=== PATIENT | female | born 1950 | race Caucasian/White ===

== ENCOUNTER 2018-03-15 20:46 | Inpatient (IN) | payer BC, OTHER ==
[~2018-03-15] VITALS: Ht 172.7 cm; Wt 77.9 kg
[2018-03-15 21:01] VITALS: Ht 172.7 cm; Wt 77.9 kg
[2018-03-15 23:29] LABS: BASOPHIL % 0.5 % (0-2); PLATELET COUNT 267 x10^3mcL (130-400); RED CELL DISTRIBUTION WIDTH 13.3 % (11.5-14.5)
[2018-03-15] MEDS ORDERED: METFORMIN HYDR500 M1 PO (23:55)
[2018-03-16 00:08] LABS: CALCIUM 9.8 mg/dL (8.5-10.1); CARBON DIOXIDE 26.4 mmol/L (21-32); CREATININE SERUM 1.1 mg/dL (0.6-1.0); POTASSIUM SERUM 3.9 mmol/L (3.5-5.1)
[2018-03-16 00:13] LABS: ALBUMIN 4.1 g/dL (3.4-5.0); BILIRUBIN TOTAL 0.4 mg/dL (0.20-1.00); TOTAL PROTEIN, SERUM 7.7 g/dL (6.4-8.2)
[2018-03-16 01:26] LABS: MAGNESIUM 1.8 mg/dL (1.8-2.4); PHOSPHOROUS 3.4 mg/dL (2.5-4.9)
[2018-03-16 01:31] LABS: CHOLESTEROL/HDL RATIO 4.3
[2018-03-16 01:50] VITALS: BP 136/65
[2018-03-16] MEDS ORDERED: METFORMIN HCL500 MG PO (02:31)
[2018-03-16] MEDS ORDERED: ZOCOR20 MG PO (02:31)
[2018-03-16 06:21] VITALS: BP 121/70
[2018-03-16 09:07] VITALS: BP 128/47
[2018-03-16 11:55] VITALS: BP 114/69
[2018-03-16 14:38] LABS: microscopic required? NO
[2018-03-16 14:47] LABS: urine erythrocyte NEGATIVE (NEGATIVE)
[2018-03-16 16:23] VITALS: BP 113/58
[2018-03-16 20:46] VITALS: BP 121/71
[2018-03-17 04:41] VITALS: BP 121/63
[2018-03-17 07:24] LABS: CARBON DIOXIDE 25.1 mmol/L (21-32); CREATININE SERUM 1.2 mg/dL (0.6-1.0); MAGNESIUM 1.7 mg/dL (1.8-2.4); PHOSPHOROUS 3.8 mg/dL (2.5-4.9); POTASSIUM SERUM 3.9 mmol/L (3.5-5.1)
[2018-03-17 07:50] LABS: BASOPHIL % 0.5 % (0-2); PLATELET COUNT 249 x10^3mcL (130-400); RED CELL DISTRIBUTION WIDTH 12.6 % (11.5-14.5)
[2018-03-17 08:30] VITALS: BP 117/68
[2018-03-17 12:47] VITALS: BP 109/79
[2018-03-17 16:35] VITALS: BP 112/65
[2018-03-17 17:09] VITALS: BP 109/79
== END 2018-03-17 18:27 | disposition home or self-care (01) | DRG 313 ==
LOC: ED 20:46 → DU 23:58
PROVIDERS: Emergency Medicine; Family Medicine
DX: R07.9 Chest pain, unspecified (principal); I69.354 Hemiplegia and hemiparesis following cerebral infarction affecting left non-dominant side; E11.9 Type 2 diabetes mellitus without complications; E78.5 Hyperlipidemia, unspecified; I10 Essential (primary) hypertension; I44.0 Atrioventricular block, first degree; Z78.0 Asymptomatic menopausal state; Z88.0 Allergy status to penicillin; Z90.710 Acquired absence of both cervix and uterus; Z79.84 Long term (current) use of oral hypoglycemic drugs
CPT/HCPCS: 82962; 83880; 85378; A9500; J2785; Q0092